=== PATIENT | female | born 1935 | race Asian ===

== ENCOUNTER 2016-12-11 20:41 | Inpatient (IN) | payer MEDICARE, OTHER ==
[~2016-12-11] VITALS: Ht 157.5 cm; Wt 44.0 kg
[2016-12-11] MEDS ORDERED: IOVERSOL 350 MG/ML 100 ML VIAL ONE (21:07)
[2016-12-11] MEDS ORDERED: SODIUM CHLORIDE 0.9% 100 ML ONE (21:07)
[2016-12-11] MEDS ORDERED: VITAD1000 PO (21:33)
[2016-12-11] MEDS ORDERED: TELM20 PO (21:33)
[2016-12-11] MEDS ORDERED: DEXT15DR28 (21:33)
[2016-12-11] MEDS ORDERED: RANI150T7 PO (21:33)
[2016-12-11] MEDS ORDERED: CYCL05OE (21:33)
[2016-12-11] MEDS ORDERED: CARV12 PO (21:33)
[2016-12-11] MEDS ORDERED: CARB25TA3 PO (21:33)
[2016-12-11] MEDS ORDERED: ASPI81 PO (21:33)
[2016-12-11 22:11] LABS: GLUCOSE,POINT OF CARE 124 MG/DL (70-110)
[2016-12-11] MEDS ORDERED: CloNIDine HCL 0.1 MG TABLET PO PRN (22:15)
[2016-12-11] MEDS ORDERED: ALBUTEROL SULFATE 2.5 MG/0.5 ML NEB SOLUTION NEB PRN (22:15)
[2016-12-11] MEDS ORDERED: ACETAMINOPHEN 325 MG TABLET PO PRN ×2 (22:15→22:45)
[2016-12-11] MEDS ORDERED: MAGNESIUM HYDROXIDE SUSPENSION 30 ML UDCUP PO PRN (22:15)
[2016-12-11] MEDS ORDERED: AmLODIPine BESYLATE 10 MG TABLET PO SCH (22:15)
[2016-12-11] MEDS ORDERED: ASPIRIN 325 MG TABLET PO ONE (22:30)
[2016-12-11] MEDS ORDERED: LABETALOL HCL 100 MG TABLET PO SCH (22:30)
[2016-12-11] MEDS: ASPIRIN 81 MG CHEWABLE TABLET PO SCH (22:30)
[2016-12-11 22:38] LABS: ANION GAP 6 mmol/L (8-16); CALCIUM, TOTAL 8.5 mg/dL (8.8-10.5); CARBON DIOXIDE 27 mmol/L (22-29); CHLORIDE 98 mmol/L (98-107); CREATININE 0.75 mg/dL (0.60-1.30); GLOMERULAR FILTR. RATE CALC > 60 mL/min (>60); INR 1.2 (0.9-1.1); POTASSIUM 3.6 mmol/L (3.5-5.1); PROTHROMBIN TIME 12.7 SEC (9.4-11.6); SODIUM SERUM 131 mmol/L (136-145); UREA NITROGEN, BLOOD 18 mg/dL (7-18)
[2016-12-11] MEDS ORDERED: LOSARTAN POTASSIUM 25 MG TABLET PO SCH (22:45)
[2016-12-11] MEDS ORDERED: 0.9% SODIUM CHLORIDE 10 ML SYRINGE IVP PRN (22:45)
[2016-12-11] MEDS ORDERED: ONDANSETRON HCL 4 MG/2 ML VIAL IVP PRN (22:45)
[2016-12-11 22:54] LABS: BASOPHILS % (AUTO) 0.5 % (0.0-2.0); EOSINOPHILS % (AUTO) 0.1 % (1.0-6.0); HEMATOCRIT 29.8 % (36-46); HEMOGLOBIN 10.2 g/dL (12.0-16.0); LYMPHOCYTES # (AUTO) 0.7 K/uL (1.0-4.8); LYMPHOCYTES % (AUTO) 20.7 % (22.0-44.0); MEAN CORPUSCULAR HEMOGLOBIN 30.1 pg (26.0-34.0); MEAN CORPUSCULAR HGB CONC 34.2 G/dL (31.0-37.0); MEAN CORPUSCULAR VOLUME 88 fL (80-100); MONOCYTES # (AUTO) 0.3 K/uL (0.1-1.0); MONOCYTES % (AUTO) 8.7 % (2.0-9.0); NEUTROPHILS # (AUTO) 2.4 K/uL (1.8-7.7); PLATELET COUNT (AUTO) 78 K/uL (150-450); RED BLOOD CELL COUNT(AUTO) 3.38 MIL/uL (4.00-5.20); RED CELL DISTRIBUTION WIDTH 17.1 % (11.5-14.5); WHITE BLOOD COUNT (AUTO) 3.4 K/uL (4.5-11.0)
[2016-12-11 23:03] LABS: ALANINE AMINOTRANSFERASE 3 U/L (12-78); ALBUMIN 3.7 g/dL (3.4-5.0); ASPARTATE AMINOTRANSFERASE 14 U/L (15-37); BILIRUBIN,TOTAL 1.1 mg/dL (0.1-1.0); CREATINE KINASE MB 1.3 ng/mL (0-5); CREATINE KINASE, TOTAL 118 U/L (26-192); TOTAL PROTEIN, SERUM 7.8 g/dL (6.4-8.2)
[2016-12-11 23:17] LABS: ADD UA MICROSCOPIC NO; APPEARANCE,URINE CLEAR (CLEAR); GLUCOSE, URINE (UA) NEGATIVE (NEGATIVE); KETONES,URINE NEGATIVE (NEGATIVE); LEUKOCYTE ESTERASE ,URINE NEGATIVE (NEGATIVE); OCCULT BLOOD,URINE NEGATIVE (NEGATIVE); PROTEIN,URINE NEGATIVE (NEGATIVE)
[2016-12-11 23:26] LABS: RBC MORPHOLOGY COMMENT ABNORMAL RBC MORPH
[2016-12-11] MEDS: ATORVASTATIN CALCIUM 20 MG TABLET PO SCH (23:45)
[2016-12-12] VITALS (7 sets, daily range): BP systolic 107–167; BP diastolic 61–94
[2016-12-12] MEDS ORDERED: PNEUMOCOCCAL VACCINE POLYVALENT 0.5 ML VIAL [PPSV23] IM ONE (02:45)
[2016-12-12] MEDS: DOCUSATE SODIUM 100 MG CAPSULE PO SCH ×2 (08:31→20:14)
[2016-12-12] MEDS: CARBIDOPA/LEVODOPA 25-100 MG TABLET PO SCH ×4 (08:32→23:30)
[2016-12-12] MEDS: PANTOPRAZOLE SODIUM 40 MG DR TABLET PO SCH (08:32)
[2016-12-12] MEDS ORDERED: CARVEDILOL 6.25 MG TABLET PO SCH (09:00)
[2016-12-12] MEDS ORDERED: AmLODIPine BESYLATE 5 MG TABLET PO ONE (16:00)
[2016-12-12] MEDS: ASPIRIN 81 MG CHEWABLE TABLET PO SCH (20:14)
[2016-12-12] MEDS: ATORVASTATIN CALCIUM 20 MG TABLET PO SCH (20:14)
[2016-12-12] MEDS: HEPARIN SODIUM,PORCINE 5,000 UNITS/ML VIAL SQ SCH (20:14)
[2016-12-12] MEDS: AmLODIPine BESYLATE 5 MG TABLET PO SCH (20:14)
[2016-12-12] MEDS ORDERED: AmLODIPine BESYLATE 5 MG TABLET PO SCH (21:00)
[2016-12-12] MEDS ORDERED: CARVEDILOL 3.125 MG TABLET PO SCH (21:00)
[2016-12-13 00:16] VITALS: BP 174/89
[2016-12-13 00:20] VITALS: BP 153/81
[2016-12-13 04:06] VITALS: BP 150/88
[2016-12-13 06:25] LABS: BASOPHILS % (AUTO) 0.2 % (0.0-2.0); EOSINOPHILS % (AUTO) 0.1 % (1.0-6.0); HEMATOCRIT 27.9 % (36-46); HEMOGLOBIN 9.5 g/dL (12.0-16.0); LYMPHOCYTES # (AUTO) 0.8 K/uL (1.0-4.8); LYMPHOCYTES % (AUTO) 19.5 % (22.0-44.0); MEAN CORPUSCULAR HEMOGLOBIN 30.2 pg (26.0-34.0); MEAN CORPUSCULAR HGB CONC 34.1 G/dL (31.0-37.0); MEAN CORPUSCULAR VOLUME 88 fL (80-100); MONOCYTES # (AUTO) 0.7 K/uL (0.1-1.0); MONOCYTES % (AUTO) 17.1 % (2.0-9.0); NEUTROPHILS # (AUTO) 2.6 K/uL (1.8-7.7); NEUTROPHILS % (AUTO) 63.1 % (40.0-70.0); RED BLOOD CELL COUNT(AUTO) 3.16 MIL/uL (4.00-5.20); RED CELL DISTRIBUTION WIDTH 16.8 % (11.5-14.5); WHITE BLOOD COUNT (AUTO) 4.2 K/uL (4.5-11.0)
[2016-12-13 06:42] LABS: ANION GAP 6 mmol/L (8-16); CALCIUM, TOTAL 8.6 mg/dL (8.8-10.5); CARBON DIOXIDE 30 mmol/L (22-29); CHLORIDE 101 mmol/L (98-107); CREATININE 0.63 mg/dL (0.60-1.30); GLOMERULAR FILTR. RATE CALC > 60 mL/min (>60); POTASSIUM 3.6 mmol/L (3.5-5.1); SODIUM SERUM 137 mmol/L (136-145); UREA NITROGEN, BLOOD 16 mg/dL (7-18)
[2016-12-13 07:13] VITALS: BP 150/72
[2016-12-13 07:27] LABS: PLATELET COUNT (AUTO) 74 K/uL (150-450)
[2016-12-13] MEDS: DOCUSATE SODIUM 100 MG CAPSULE PO SCH (09:18)
[2016-12-13] MEDS: CARBIDOPA/LEVODOPA 25-100 MG TABLET PO SCH (09:18)
[2016-12-13] MEDS: AmLODIPine BESYLATE 5 MG TABLET PO SCH (09:18)
[2016-12-13] MEDS: PANTOPRAZOLE SODIUM 40 MG DR TABLET PO SCH (09:18)
[2016-12-13] MEDS: HEPARIN SODIUM,PORCINE 5,000 UNITS/ML VIAL SQ SCH (09:19)
[2016-12-13 11:38] VITALS: BP 157/92
[2016-12-13] MEDS ORDERED: AMLO-512 PO (14:20)
[2016-12-13] MEDS ORDERED: ATOR20TA86 PO (14:20)
[2016-12-13] MEDS ORDERED: HydrALAZINE HCL 25 MG TABLET PO SCH (21:00)
== END 2016-12-13 16:10 | disposition home or self-care (01) | DRG 69 ==
LOC: EMS 20:42 → 5S 22:48
PROVIDERS: ADMIT Internal Medicine; ATTEND Internal Medicine
DX: G45.9 Transient cerebral ischemic attack, unspecified (principal); G93.40 Encephalopathy, unspecified; D61.818 Other pancytopenia; G20 Parkinson's disease; E78.5 Hyperlipidemia, unspecified; I25.10 Atherosclerotic heart disease of native coronary artery without angina pectoris; R26.2 Difficulty in walking, not elsewhere classified; I48.2 Chronic atrial fibrillation; R00.1 Bradycardia, unspecified; I10 Essential (primary) hypertension; I16.0 Hypertensive urgency; Z86.73 Personal history of transient ischemic attack (TIA), and cerebral infarction without residual deficits; Z95.5 Presence of coronary angioplasty implant and graft
CPT/HCPCS: 70496; 82962; 92610; 93005; 93306; 93880; 97163; 99285; J1644; J7050